=== PATIENT | male | born 1955 | race Caucasian/White ===

== ENCOUNTER 2023-07-15 11:43 | Emergency (ER) | payer MEDICARE ==
[~2023-07-15] VITALS: Ht 188 cm; Wt 62.6 kg
[2023-07-15 12:25] LABS: BASOPHILS # (AUTO) 0.1 K/uL (0.0-0.2); BASOPHILS % (AUTO) 1.1 % (0.0-2.0); EOSINOPHILS # (AUTO) 0.1 K/uL (0.0-0.7); EOSINOPHILS % (AUTO) 0.8 % (0.0-6.0); HEMATOCRIT 46 % (39-51); HEMOGLOBIN 15.6 g/dL (13.5-17.5); LYMPHOCYTES # (AUTO) 0.6 K/uL (0.8-4.8); LYMPHOCYTES % (AUTO) 4.7 % (20.0-44.0); MEAN CORPUSCULAR HEMOGLOBIN 36 PG (26.0-33.0); MEAN CORPUSCULAR HGB CONC 34 g/dl (31.0-36.0); MEAN CORPUSCULAR VOLUME 106 fL (80-96); NEUTROPHILS # (AUTO) 10.3 K/uL (1.8-8.9); NEUTROPHILS % (AUTO) 85.4 % (43.0-81.0); PLATELET COUNT (AUTO) 274 K/uL (150-450); RED BLOOD CELL COUNT(AUTO) 4.36 MIL/uL (4.5-6.0); RED CELL DISTRIBUTION WIDTH 15.9 % (11.5-15.0); WHITE BLOOD COUNT (AUTO) 12.1 K/uL (4.3-11.0)
[2023-07-15 12:36] LABS: CARBON DIOXIDE 25 mmol/L (21-32); CHLORIDE 102 mmol/L (98-107); CREATININE 0.7 mg/dL (0.6-1.3); GLUCOSE 101 mg/dL (74-106); POTASSIUM 3.8 mmol/L (3.5-5.1); SODIUM SERUM 140 mmol/L (136-145); UREA NITROGEN, BLOOD 14 mg/dL (7-18)
[2023-07-15 12:37] LABS: SERUM AMMONIA 11 umol/L (11-32)
[2023-07-15 12:42] LABS: ALANINE AMINOTRANSFERASE 94 U/L (12-78); ALBUMIN 2.1 g/dL (3.4-5.0); ALCOHOL, BLOOD < 3 mg/dL (0-10); ALKALINE PHOSPHATASE 390 U/L (46-116); ASPARTATE AMINOTRANSFERASE 203 U/L (15-37); BILIRUBIN,DIRECT 7.9 mg/dL (0.0-0.2); BILIRUBIN,TOTAL 12.3 mg/dL (0.2-1.0); TOTAL PROTEIN, SERUM 7.6 g/dL (6.4-8.2)
[2023-07-15 12:43] LABS: INR 1.6 (0.91-1.10); PARTIAL THROMBOPLASTIN TIME 29.1 SEC (24.3-34.3); PROTHROMBIN TIME 16.4 SECS (9.2-11.1)
[2023-07-15 12:49] LABS: THYROID STIMULATING HORMONE 3.696 uIU/mL (0.358-3.74)
[2023-07-15] MEDS: CEFTRIAXONE 1 G in IV D5W 50 ML IV ONE (14:30)
[2023-07-15] MEDS ORDERED: CEFTRIAXONE 1GM BAG (ER ONLY) 50 ML IV ONE (14:35)
[2023-07-15 15:22] VITALS: BP 141/89; TEMP 98.5; O2SAT 97
== END 2023-07-15 15:23 | disposition left against medical advice (07) ==
LOC: ER 11:47
DX: R53.1 Weakness (principal); K70.9 Alcoholic liver disease, unspecified; J90 Pleural effusion, not elsewhere classified; R60.9 Edema, unspecified; R51.9 Headache, unspecified
CPT/HCPCS: 99291; 96365; 93005 ×2; 71045; 76705; 70450; 82140; 85025; 80048; 80076; 36415; 84443; 84484; 85730; 93925; 93970; 80320; J0696 ×2; J7060; G0480